=== PATIENT | male | born 1960 | race Caucasian/White ===

== ENCOUNTER 2023-01-19 14:58 | Emergency (ER) | payer MEDICAID ==
[~2023-01-19] VITALS: Ht 182.9 cm; Wt 87.0 kg
[~2023-01-19 14:58] MED LIST: ACETIC ACID2 % AU; ALBUTEROL S2.5 MG/.5 IN; ALBUTEROL2.5 MG/31 IN; AMOXICILLIN875 MG PO; BENTYL10 MG OR; LEVAQUIN500 MG PO; LORTAB5 PO; NEBULIZER; NEXIUM40 M1 PO; NO MEDS; PREDNISONE10 MG PO; PRILOSEC20 MG PO; PROAIR HFA IN; PROTONIX40 M2 PO; RANITIDINE HCL150 MG OR; RANITIDINE150 M1 PO; ROCEPHIN 1 GM1 GM IM; SINUCLEANS1 NAB; SOLU-MEDROL125 MG IM; TYLENOL500 MG OR
[2023-01-19] MEDS ORDERED: NAPROXEN500 MG PO (16:51)
[2023-01-19 17:16] VITALS: BP 140/82
[2023-01-19] MEDS ORDERED: DICLOFENAC SODIUM2 % TD (19:24)
== END 2023-01-19 17:16 | disposition home or self-care (01) ==
LOC: ED 14:58
DX: M70.22 Olecranon bursitis, left elbow (principal); I10 Essential (primary) hypertension; F17.200 Nicotine dependence, unspecified, uncomplicated; Z86.73 Personal history of transient ischemic attack (TIA), and cerebral infarction without residual deficits